=== PATIENT | male | born 1955 | race Caucasian/White ===

== ENCOUNTER 2022-07-17 18:23 | Emergency (ER) | payer BC, SELFPAY ==
[2022-07-17 18:33] VITALS: BP 166/90; PULSE 78; RESP 16; TEMP 36.2; O2SAT 100
--- NOTE | 2022-07-17 18:39 | ED.EXTPRO ---
HPI - Extremity Problem General Chief complaint: Extremity Problem,Nontraumatic Stated complaint: splinter rt hand index finger Time Seen by Provider: 07/17/22 18:40 Source: patient, RN notes reviewed and old records reviewed Mode of arrival: ambulatory Limitations: no limitations History of Present Illness HPI Narrative: 67 year old male who presents to [facility] with complaints of possible splinter or metal in his right ruff aspect of his right index finger at the dip joint area for the past 2 weeks. Patient reports that he has been working on rehab project at his house. He states a couple of nights ago he tried using a needle to get whatever was in his finger out unsuccessfully. Patient is concerned now because his finger is red and swollen with some increased tenderness to the distal aspect of right index finger. Patient has callused hands and fingers. no fevers noted. MD Complaint: other (foreign body right index finger) Onset (ago): day(s) (2) Location: right and other (index finger) Severity scale (1-10): 4 Related Data Home Medications Medication Instructions Recorded Confirmed acyclovir 400 mg tablet 400 mg PO DIRECTED 07/17/22 07/17/22 allopurinol 100 mg tablet 100 mg PO DAILY 07/17/22 07/17/22 bupropion HCl 150 mg 24 hr tablet, 150 mg PO DAILY 07/17/22 07/17/22 extended release pregabalin 75 mg capsule 75 mg PO DAILY 07/17/22 07/17/22 trazodone 50 mg tablet 50 mg PO DAILY 07/17/22 07/17/22 Allergies Allergy/AdvReac Type Severity Reaction Status Date / Time No Known Allergies Allergy Verified 07/17/22 18:40 Review of Systems Review of Systems: CONSTITUTIONAL: Denies fever, chills, or sweats. EYES: Denies visual changes, redness, or discharge. ENT: Denies rhinorrhea, congestion, sore throat, or otalgia. CARDIOVASCULAR: Denies chest pain, palpitations, or edema. RESPIRATORY: Denies cough or dyspnea. GASTROINTESTINAL: Denies abdominal pain, nausea, vomiting, or diarrhea. GENITOURINARY: Denies dysuria or hematuria. SKIN: Denies rash or itching.positive for possible foreign body right index finger ruff aspect with swelling and some redness to right index finger MUSCULOSKELETAL: Denies back pain, joint pain, or myalgia. NEUROLOGIC: Denies headache, numbness, or weakness. PSYCHIATRIC: positive for anxiety or depression. All systems reviewed & are unremarkable except as noted in HPI and below PMFSH Past Medical History Medical History (Updated 07/18/22 @ 10:25 by Jigna Fuller NP) Anxiety and depression Arthritis Gout Social History Social History (Updated 07/18/22 @ 10:25 by Jigna Fuller NP) Smoking status: Never smoker Gender identity (if verbalized by the patient): Male Comments At time of signature, agree with nursing past medical, surgical, social and family history. There is no relevant family history pertinent to the presenting complaint Exam Narrative: GENERAL: Well-appearing, well-nourished, and in no acute distress.no fevers HEAD: Normocephalic, atraumatic. EYES: PERRLA and EOMI. ENT: Nares clear, no rhinorrhea or epistaxis. Mucous membranes moist.TM's normal with good light reflex, throat pink with no lesion or swelling NECK: Supple.no lymphadenopathy CHEST: Clear to auscultation. No respiratory distress.SAO2 100% on room air HEART: Regular rate and rhythm. No murmur heard. Normal peripheral pulses. ABDOMEN: Soft, nontender, nondistended, normal active bowel sounds. EXTREMITIES: Normal range of motion. No edema. SKIN: Warm, dry, no rash. redness with swelling to right index finger, rough callused hand with irritation to skin below right index finger posterior aspect below DIP NEURO: No focal deficits . Alert and oriented x3. Course Course Emergency Course: Patient is aware of diagnosis, understands and agrees to treatment plan.? Anticipatory guidance given.? Patient agrees to follow-up as directed and is aware of reasons to seek care at the emergency department. Por
[2022-07-17 18:40] VITALS: BP 166/90; PULSE 78; RESP 16; TEMP 36.2; O2SAT 100
== END 2022-07-17 19:23 | disposition home or self-care (01) ==
PROVIDERS: Emergency Provider Registered Nurse; PCP Internal Medicine Geriatric Medicine
DX: S61.240A Puncture wound with foreign body of right index finger without damage to nail, initial encounter (principal); L03.011 Cellulitis of right finger; W45.8XXA Other foreign body or object entering through skin, initial encounter; M19.90 Unspecified osteoarthritis, unspecified site; M10.9 Gout, unspecified; F41.9 Anxiety disorder, unspecified; F32.A Depression, unspecified
CPT/HCPCS: 99203; G0463